=== PATIENT | female | born 1935 | race Caucasian/White ===

== ENCOUNTER 2017-03-20 14:29 | Emergency (ER) | payer MEDICARE, OTHER ==
[~2017-03-20] VITALS: Ht 139.7 cm; Wt 49.4 kg
[~2017-03-20 14:29] MED LIST: LEVO112T4 PO; ROPI0.5T PO; TRAM50TA2 PO
[2017-03-20 15:25] VITALS: BP 128/78
[2017-03-20 15:35] LABS: Basophils # (auto) 0 uL; Basophils % (auto) 0.2 % (0.0-2.0); CONDITION Y; Eosinophils # (auto) 0.4 uL; Eosinophils % (auto) 7.2 % (0.0-7.0); Hematocrit 31.3 % (36.0-46.0); Hemoglobin 10.2 g/dL (12.2-16.2); Lymphocytes # (auto) 1.3 uL; Lymphocytes % (auto) 21.5 % (10.0-50.0); Mean Corpuscular Hemoglobin 31.9 pg (28.0-32.0); Mean Corpuscular Hgb Conc. 32.6 g/dL (32.0-36.0); Mean Platelet Volume 7.8 fL (7.4-10.4); Monocytes # (auto) 0.2 uL; Monocytes % (auto) 3.7 % (0.0-12.0); Neutrophils # (auto) 4.2 uL; Neutrophils % (auto) 67.4 % (37.0-80.0); Platelet Count (auto) 252 10^3/uL (140-450); Red Cell Distribution Width 17.9 % (11.6-16.0); SUSPECT SEE PRINTOUT; White Blood Cell 6.2 10^3/uL (4.4-10.8)
[2017-03-20 16:05] LABS: Albumin 2.8 g/dL (3.4-5.0); Alkaline Phosphatase 115 U/L (45-117); Anion Gap 7 (5-15); Aspartate Aminotransferase 16 U/L (15-37); BUN/Creatinine Ratio 21.1; Bilirubin, Total 0.4 mg/dL (0.2-1.0); Blood Urea Nitrogen 19 mg/dL (7-18); Calcium 8.6 mg/dL (8.5-10.1); Carbon Dioxide 21 mmol/L (21-32); Chloride 113 mmol/L (98-107); GFR African American 77 mL/min; GFR Non-African American 64 mL/min; Glucose 81 mg/dL (74-106); Magnesium 2.6 mg/dL (1.6-2.6); Potassium 4.1 mmol/L (3.5-5.1); Sodium 141 mmol/L (136-145)
[2017-03-20] MEDS ORDERED: cefTRIAXone W LIDOCAINE 1 GM IM IM ONE ×3 (16:30→17:00)
[2017-03-20 17:14] LABS: B-Type Natriuretic Peptide 88.8 pg/mL (0-100); Temperature: 22.7 C (20.0-25.0)
== END 2017-03-20 17:11 | disposition home or self-care (01) ==
LOC: ER 14:30
DX: L03.116 Cellulitis of left lower limb (principal); M12.862 Other specific arthropathies, not elsewhere classified, left knee; I10 Essential (primary) hypertension; E07.9 Disorder of thyroid, unspecified; Z90.710 Acquired absence of both cervix and uterus
CPT/HCPCS: 36415; 80053; 83735; 83880; 84484; 85025; 93971; 96372; J0696

== ENCOUNTER 2017-12-04 00:40 | Emergency (ER) | payer MEDICARE, OTHER ==
[~2017-12-04] VITALS: Ht 154.9 cm; Wt 59.0 kg
[2017-12-04 04:27] VITALS: BP 100/50
[2017-12-04] MEDS ORDERED: HYDROcodone-ACET 5/325MG TAB PO ONE (05:00)
== END 2017-12-04 07:40 | disposition home or self-care (01) ==
LOC: EDBD 00:40 → ER 00:44
DX: M13.831 Other specified arthritis, right wrist (principal); L84 Corns and callosities; I10 Essential (primary) hypertension; E07.89 Other specified disorders of thyroid
CPT/HCPCS: 73130; 93005

== ENCOUNTER 2018-01-04 13:19 | Emergency (ER) | payer MEDICARE, OTHER ==
[~2018-01-04] VITALS: Ht 157.5 cm; Wt 61.7 kg
[2018-01-04 14:33] LABS: Basophils # (auto) 0 uL; Basophils % (auto) 0.2 % (0.0-2.0); Eosinophils # (auto) 0 uL; Eosinophils % (auto) 0.1 % (0.0-7.0); Hematocrit 28.3 % (36.0-46.0); Lymphocytes # (auto) 1.6 uL; Lymphocytes % (auto) 17.7 % (10.0-50.0); Mean Corpuscular Hgb Conc. 31.8 g/dL (32.0-36.0); Mean Corpuscular Volume 94.1 fL (80.0-100.0); Monocytes # (auto) 0.7 uL; Monocytes % (auto) 7.3 % (0.0-12.0); Neutrophils # (auto) 6.8 uL; Neutrophils % (auto) 74.7 % (37.0-80.0); Platelet Count (auto) 339 10^3/uL (140-450); Red Cell Distribution Width 16.6 % (11.8-14.3); White Blood Cell 9.1 10^3/uL (4.4-10.8)
[2018-01-04 14:52] LABS: Albumin 3.3 g/dL (3.4-5.0); Anion Gap 11 (5-15); Blood Urea Nitrogen 44 mg/dL (7-18); Calcium 9.1 mg/dL (8.5-10.1); Carbon Dioxide 23 mmol/L (21-32); Chloride 108 mmol/L (98-107); Glucose 99 mg/dL (74-106); Potassium 4.1 mmol/L (3.5-5.1); Sodium 142 mmol/L (136-145)
[2018-01-04 14:54] LABS: Alanine Aminotransferase 18 U/L (13-56); Aspartate Aminotransferase 24 U/L (15-37); GFR African American 35 mL/min; GFR Non-African American 29 mL/min
[2018-01-04 14:59] LABS: Alkaline Phosphatase 129 U/L (45-117); Bilirubin, Total 0.5 mg/dL (0.2-1.0); Total Protein 8.2 g/dL (6.4-8.2)
[2018-01-04 16:39] VITALS: BP 119/71
== END 2018-01-04 17:49 | disposition home or self-care (01) ==
LOC: EDBD 13:19 → ER 13:28
DX: M79.1 Myalgia (principal); G89.29 Other chronic pain; M54.9 Dorsalgia, unspecified; I10 Essential (primary) hypertension; E07.9 Disorder of thyroid, unspecified; Z79.899 Other long term (current) drug therapy; Z90.710 Acquired absence of both cervix and uterus
CPT/HCPCS: 36415; 71045; 80053; 84484; 85025

== ENCOUNTER 2018-01-06 18:47 | Inpatient (IN) | payer MEDICARE, OTHER ==
[~2018-01-06] VITALS: Ht 147.3 cm; Wt 63.5 kg
[2018-01-06] MEDS ORDERED: IOHEXOL 350 MG/ML 100ML IJ ONE (19:36)
[2018-01-06] MEDS ORDERED: MORPHINE SULFATE 4 MG/ML SYR/VIAL IV ONE (20:00)
[2018-01-06] MEDS ORDERED: ONDANSETRON HCL 4 MG/2 ML VIAL IV ONE (20:00)
[2018-01-06 21:57] LABS: Basophils # (auto) 0.1 uL; Basophils % (auto) 0.7 % (0.0-2.0); Eosinophils # (auto) 0.3 uL; Eosinophils % (auto) 3.4 % (0.0-7.0); Hematocrit 27.5 % (36.0-46.0); Hemoglobin 8.8 g/dL (12.2-16.2); Lymphocytes # (auto) 1.5 uL; Lymphocytes % (auto) 17.2 % (10.0-50.0); Mean Corpuscular Hemoglobin 30.1 pg (28.0-32.0); Mean Corpuscular Hgb Conc. 32.2 g/dL (32.0-36.0); Mean Corpuscular Volume 93.4 fL (80.0-100.0); Monocytes # (auto) 0.7 uL; Neutrophils # (auto) 5.9 uL; Neutrophils % (auto) 70.7 % (37.0-80.0); Nucleated Red Blood Cells % 0.1 %; Platelet Count (auto) 286 10^3/uL (140-450); Red Blood Cells 2.94 10^6/uL (4.0-5.20); Red Cell Distribution Width 16.9 % (11.8-14.3); White Blood Cell 8.4 10^3/uL (4.4-10.8)
[2018-01-06 22:12] LABS: INR 1.07 (0.9-1.15); Partial Thromboplastin Time 27.3 sec (22.64-33.71); Prothrombin Time 11.7 sec (9.37-12.3)
[2018-01-06 22:37] LABS: Alanine Aminotransferase 17 U/L (13-56); Albumin 2.9 g/dL (3.4-5.0); Amylase 45 U/L (25-115); Anion Gap 11 (5-15); Aspartate Aminotransferase 24 U/L (15-37); BUN/Creatinine Ratio 28.2; Blood Urea Nitrogen 42 mg/dL (7-18); Calcium 8.4 mg/dL (8.5-10.1); Carbon Dioxide 22 mmol/L (21-32); Chloride 109 mmol/L (98-107); GFR African American 43 mL/min; GFR Non-African American 36 mL/min; Glucose 94 mg/dL (74-106); Lipase 107 U/L (73-393); Magnesium 2.8 mg/dL (1.6-2.6); Potassium 4.1 mmol/L (3.5-5.1); Sodium 142 mmol/L (136-145)
[2018-01-06 22:44] LABS: Alkaline Phosphatase 130 U/L (45-117); Bilirubin, Total 0.4 mg/dL (0.2-1.0); Total Protein 7.5 g/dL (6.4-8.2)
[2018-01-07 05:12] LABS: Urine Bacteria NONE SEEN /hpf (None Seen); Urine Blood TRACE /uL (Negative); Urine Specific Gravity 1.019 (1.001-1.035); Urine WBC <1 /hpf (0 - 5)
[2018-01-07] MEDS ORDERED: SODIUM CHLORIDE 0.9% 1,000 ML IV ONE ×2 (05:45→13:45)
[2018-01-07] MEDS ORDERED: MORPHINE SULFATE 4 MG/ML SYR/VIAL IV PRN (07:00)
[2018-01-07] MEDS ORDERED: ACETAMINOPHEN 325 MG TAB PO PRN (07:00)
[2018-01-07] MEDS ORDERED: ONDANSETRON HCL 4 MG/2 ML VIAL IV PRN (07:00)
[2018-01-07] MEDS ORDERED: HYDROcodone-ACET 5/325MG TAB PO PRN (07:00)
[2018-01-07] MEDS ORDERED: TEMAZEPAM 15 MG CAP PO PRN (07:00)
[2018-01-07] MEDS ORDERED: LEVOTHYROXINE SODIUM 112 MCG TAB PO SCH (07:00)
[2018-01-07] MEDS ORDERED: ENOXAPARIN SOD 30 MG/0.3 ML SYRINGE SC SCH (10:00)
[2018-01-07] MEDS ORDERED: PANTOPRAZOLE 40 MG TAB PO SCH (10:00)
[2018-01-07 10:21] LABS: Hematocrit 29.3 % (36.0-46.0); Hemoglobin 9.3 g/dL (12.2-16.2)
[2018-01-07 11:57] VITALS: BP 96/49
[2018-01-07] MEDS ORDERED: DONEPEZIL HYDROCHLORIDE 5 MG TAB PO SCH (22:00)
[2018-01-08] MEDS ORDERED: LEVOTHYROXINE SODIUM 50 MCG TAB PO SCH (07:00)
== END 2018-01-07 16:15 | disposition home or self-care (01) | DRG 684 ==
LOC: EDBD 18:47 → ER 18:50 → OVERFLOW 18:51
PROVIDERS: ADMIT Nurse Practitioner; ATTEND Nurse Practitioner
DX: N17.9 Acute kidney failure, unspecified (principal); E86.0 Dehydration; D63.8 Anemia in other chronic diseases classified elsewhere; N28.1 Cyst of kidney, acquired; I11.9 Hypertensive heart disease without heart failure; E03.9 Hypothyroidism, unspecified; G89.29 Other chronic pain; G47.00 Insomnia, unspecified; N28.89 Other specified disorders of kidney and ureter; Z90.710 Acquired absence of both cervix and uterus; Z79.899 Other long term (current) drug therapy
CPT/HCPCS: 36415; 51702; 71045; 74176; 76775; 80053; 81001; 82150; 83690; 83735; 84484; 85014; 85018; 85025; 85610; 85730; 93005; 94761; 96361; 96372; 96374; 96375; J2405